=== PATIENT | male | born 1970 | race Caucasian/White ===

== ENCOUNTER 2016-04-17 15:15 | Emergency (ER) | payer MEDICAID ==
[~2016-04-17] VITALS: Ht 180.3 cm; Wt 99.8 kg
[~2016-04-17 15:15] MED LIST: EDOX60TA PO; FLEC100T2 PO; METO25TA6 PO
[2016-04-17 15:22] VITALS: BP 133/71
== END 2016-04-17 16:36 | disposition home or self-care (01) ==
LOC: ER 15:17
DX: S67.196A Crushing injury of right little finger, initial encounter (principal); I10 Essential (primary) hypertension; I48.91 Unspecified atrial fibrillation; F17.200 Nicotine dependence, unspecified, uncomplicated; W23.0XXA Caught, crushed, jammed, or pinched between moving objects, initial encounter; Y93.89 Activity, other specified; Y92.89 Other specified places as the place of occurrence of the external cause; Y99.8 Other external cause status
CPT/HCPCS: 73140-TC; A4606; Z7610